=== PATIENT | female | born 1995 | race Caucasian/White ===

== ENCOUNTER 2017-07-21 11:48 | Inpatient (IN) ==
[2017-07-21] MEDS ORDERED: ONDANSETRON 4 MG/2 ML VIAL IV STA (13:53)
[2017-07-21] MEDS ORDERED: SODIUM CHLORIDE 0.9% 1,000 ML IV STA (13:53)
[2017-07-21] MEDS ORDERED: ONDANSETRON 4 MG/2 ML VIAL ONE (14:45)
[2017-07-21 15:53] LABS: Basophils % 0.1 % (0.0-0.8); Eosinophils # 0.1 10*3/uL (0.0-0.87); Eosinophils % 0.8 % (0.00-10.9); Hematocrit 31.6 VOL% (35.7-47.0); Hemoglobin 10.9 GM/DL (12.0-16.0); Immature Granulocytes % 0.4 %; Immature Granulocytes Absolute 0.03 #; Lymphocytes # 1.4 10*3/uL (1.4-4.0); Mean Corpuscular HGB Conc 34.5 GM/DL (32-36); Mean Corpuscular Hemoglobin 30 PG (27-34); Mean Corpuscular Volume 86.3 FL (87-102); Mean Platelet Volume 9.8 FL (9.6-12.0); Monocytes # 0.5 10*3/uL (0.11-0.8); Monocytes % 6.6 % (1.7-12.7); Neutrophils # 5.8 10*3/uL (1.4-7.4); Neutrophils % 74.1 % (38.7-73.9); Platelet Count 191 T/CUMM (130-400); Red Blood Count 3.66 MC/CUMM (3.8-5.5); Red Cell Distribution Width 13.3 % (9.3-17.3); White Blood Count 7.9 T/CUMM (4-12)
[2017-07-21 15:59] LABS: Albumin 3.2 G/DL (3.4-5.0); Bilirubin,Total 0.4 MG/DL (0.2-1.0); Magnesium 1.7 MG/DL (1.8-2.4); Potassium 3.7 MMOL/L (3.5-5.1); Total Protein 6.8 G/DL (6.4-8.3)
[2017-07-21 16:15] LABS: Apearance,Urine Slightly Hazy (Clear); Bacteria,Urine Occasional /HPF (Few); Bilirubin,Urine Negative (Negative); Blood, Urine Negative (Negative); Glucose,Urine (UA) Negative (Negative); Ketones,Urine 80 mg/dL (Negative); Mucus,Urine Few /LPF (Occasional); Nitrite,Urine Negative (Negative); Protein,Urine Negative; RBC,Urine 1 /HPF (0-4); Squamous Epithelial Cell,Urine Occasional /HPF (0-10); Urine Color Yellow (Yellow); Urine Specific Gravity 1.017 (1.001-1.035); Urine Urobilinogen < 2.0 EU/DL (0.2-1.0); WBC,Urine 4 /HPF (0-6)
[2017-07-21] MEDS ORDERED: DEXTROSE 50% 25 GM/50 ML VIAL IV STA (16:55)
[2017-07-21] MEDS ORDERED: DEXTROSE 50% 25 GM/50 ML SYRINGE IV ONE (17:09)
[2017-07-21] MEDS ORDERED: SODIUM CHLORIDE 0.9% 1,000 ML IV SCH (18:04)
[2017-07-21] MEDS ORDERED: ONDANSETRON 4 MG/2 ML VIAL IV PRN (18:04)
[2017-07-21] MEDS ORDERED: ACETAMINOPHEN 500 MG TABLET PO PRN (21:30)
[2017-07-22 05:42] LABS: Basophils % 0.2 % (0.0-0.8); Eosinophils # 0.1 10*3/uL (0.0-0.87); Hematocrit 25.8 VOL% (35.7-47.0); Immature Granulocytes % 0.3 %; Immature Granulocytes Absolute 0.02 #; Lymphocytes # 1.5 10*3/uL (1.4-4.0); Lymphocytes % 25.8 % (21.3-54.2); Mean Corpuscular HGB Conc 34.9 GM/DL (32-36); Mean Corpuscular Hemoglobin 30 PG (27-34); Mean Corpuscular Volume 85.7 FL (87-102); Mean Platelet Volume 9.8 FL (9.6-12.0); Monocytes # 0.4 10*3/uL (0.11-0.8); Monocytes % 7.3 % (1.7-12.7); Neutrophils # 3.8 10*3/uL (1.4-7.4); Neutrophils % 65.4 % (38.7-73.9); Platelet Count 161 T/CUMM (130-400); Red Blood Count 3.01 MC/CUMM (3.8-5.5); Red Cell Distribution Width 13.4 % (9.3-17.3); White Blood Count 5.8 T/CUMM (4-12)
[2017-07-22 06:04] LABS: Albumin 2.4 G/DL (3.4-5.0); Bilirubin,Total 0.7 MG/DL (0.2-1.0); Calcium 7.9 MG/DL (8.5-10.1); Osmolality,Calculated 274.4 MOS/KG (273-304); Potassium 3.5 MMOL/L (3.5-5.1); Total Protein 5.2 G/DL (6.4-8.3)
[2017-07-22] MEDS: METOCLOPRAMIDE 10 MG TABLET PO SCH ×2 (07:50→11:15)
[2017-07-22] MEDS ORDERED: METOCLOPRAMIDE 10 MG TABLET ONE (08:12)
[2017-07-22 11:10] VITALS: BP 91/55
== END 2017-07-22 14:10 | disposition home or self-care (01) | DRG 781 ==
LOC: N.ED 11:48 → N.EDINP 17:01 → N.OB 18:00
PROVIDERS: ADMIT Obstetrics & Gynecology; ATTEND Obstetrics & Gynecology

== ENCOUNTER 2018-01-07 16:26 | Inpatient (IN) ==
[2018-01-07] MEDS: LACTATED RINGERS 1,000 ML IV SCH (16:45)
[2018-01-07] MEDS ORDERED: BUTORPHANOL 2 MG/ML VIAL IV PRN (16:46)
[2018-01-07] MEDS ORDERED: ONDANSETRON 4 MG/2 ML VIAL IV PRN (16:46)
[2018-01-07] MEDS ORDERED: MEPERIDINE 50 MG/1 ML VIAL IV PRN (16:46)
[2018-01-07] MEDS ORDERED: OXYTOCIN/LR 20 UNIT/1,000 ML BAG IV SCH (17:00)
[2018-01-07 17:24] LABS: Basophils % 0.1 % (0.0-0.8); Eosinophils # 0.1 10*3/uL (0.0-0.87); Eosinophils % 0.6 % (0.00-10.9); Hematocrit 28.4 VOL% (35.7-47.0); Hemoglobin 9.5 GM/DL (12.0-16.0); Immature Granulocytes % 0.6 %; Immature Granulocytes Absolute 0.05 #; Lymphocytes # 1.2 10*3/uL (1.4-4.0); Lymphocytes % 15.3 % (21.3-54.2); Mean Corpuscular HGB Conc 33.5 GM/DL (32-36); Mean Corpuscular Hemoglobin 31 PG (27-34); Mean Corpuscular Volume 92.2 FL (87-102); Mean Platelet Volume 10.4 FL (9.6-12.0); Monocytes # 0.3 10*3/uL (0.11-0.8); Neutrophils # 6.4 10*3/uL (1.4-7.4); Neutrophils % 79.4 % (38.7-73.9); Platelet Count 151 T/CUMM (130-400); Red Blood Count 3.08 MC/CUMM (3.8-5.5); Red Cell Distribution Width 14.6 % (9.3-17.3); White Blood Count 8.1 T/CUMM (4-12)
[2018-01-07] MEDS ORDERED: hydrOXYzine HCL 25 MG/1 ML VIAL IM PRN (20:10)
[2018-01-07] MEDS ORDERED: diphenhydrAMINE 50 MG/1 ML VIAL IV PRN ×2 (20:10)
[2018-01-07] MEDS ORDERED: ePHEDrine 50 MG/ML AMP IV PRN (20:10)
[2018-01-07] MEDS ORDERED: CITRIC ACID/SODIUM CITRATE 30 ML UDCUP PO ONE (20:11)
[2018-01-07] MEDS ORDERED: FAMOTIDINE 20 MG/2 ML VIAL IV ONE (20:11)
[2018-01-07] MEDS ORDERED: fentaNYL 2 MCG/ROPIV 0.2% EPID 150 ML EPIDURAL SCH (20:30)
[2018-01-08] MEDS ORDERED: fentaNYL 100 MCG/2 ML VIAL ONE (05:51)
[2018-01-08] MEDS ORDERED: AMPICILLIN INJ 2,000 MG in SODIUM CHLORIDE 0.9% 100 ML IV ONE (07:15)
[2018-01-08] MEDS ORDERED: ACETAMINOPHEN 325 MG TABLET PO ONE ×2 (07:52→14:06)
[2018-01-08] MEDS: LACTATED RINGERS 1,000 ML IV SCH ×2 (09:04→17:19)
[2018-01-08] MEDS ORDERED: ePHEDrine 50 MG/ML AMP IV ONE (09:14)
[2018-01-08] MEDS: AMPICILLIN INJ 1,000 MG in SODIUM CHLORIDE 0.9% 100 ML IV SCH ×2 (11:38→15:27)
[2018-01-08] MEDS ORDERED: LIDOCAINE 1% 50 ML VIAL ONE (18:29)
[2018-01-08] MEDS ORDERED: miSOPROStol 200 MCG TABLET ONE (18:29)
[2018-01-08] MEDS ORDERED: METHYLERGONOVINE 0.2 MG/1 ML AMP ONE (18:58)
[2018-01-08] MEDS ORDERED: METHYLERGONOVINE 0.2 MG/1 ML AMP IM ONE (19:00)
[2018-01-08] MEDS ORDERED: HYDROCORTISONE 2.5% RECTAL CREAM 30 GM TUBE TOP PRN (19:34)
[2018-01-08] MEDS ORDERED: ACETAMINOPHEN 325 MG TABLET PO PRN (19:34)
[2018-01-08] MEDS ORDERED: MEASLES/MUMPS/RUBELLA VACCINE 0.5 ML VIAL SUBCUT ONE (19:34)
[2018-01-08] MEDS ORDERED: WITCH HAZEL PADS 100/JAR TOP PRN (19:34)
[2018-01-08] MEDS ORDERED: LANOLIN 50% CREAM 0.3 OZ TUBE TOP PRN (19:34)
[2018-01-08] MEDS ORDERED: BENZOCAINE 20%/MENTHOL 0.5% SPRAY 56 GM CAN TOP PRN (19:34)
[2018-01-08] MEDS ORDERED: BISACODYL 10 MG SUPP RECTAL PRN (19:34)
[2018-01-08] MEDS ORDERED: DIPH/TET/ACEL PERT BOOSTER VACCINE 0.5 ML VIAL IM ONE (19:34)
[2018-01-08] MEDS ORDERED: ACETAMINOPHEN/CODEINE 300-30 MG TABLET PO ONE (20:24)
[2018-01-08] MEDS: IBUPROFEN 800 MG TABLET PO PRN (20:37)
[2018-01-08] MEDS: traMADol 50 MG TABLET PO PRN (20:37)
[2018-01-09] MEDS: IBUPROFEN 800 MG TABLET PO PRN ×3 (04:28→18:02)
[2018-01-09] MEDS: traMADol 50 MG TABLET PO PRN ×3 (04:29→18:03)
[2018-01-09] MEDS: FERROUS SULFATE 325 MG TABLET PO SCH ×4 (04:53→17:35)
[2018-01-09] MEDS: DOCUSATE SODIUM 100 MG CAPSULE PO SCH ×3 (04:53→21:21)
[2018-01-09 04:54] LABS: Basophils % 0.2 % (0.0-0.8); Eosinophils # 0.1 10*3/uL (0.0-0.87); Eosinophils % 0.3 % (0.00-10.9); Hematocrit 24.9 VOL% (35.7-47.0); Hemoglobin 8.3 GM/DL (12.0-16.0); Immature Granulocytes % 1.2 %; Immature Granulocytes Absolute 0.26 #; Lymphocytes # 1.6 10*3/uL (1.4-4.0); Lymphocytes % 7.4 % (21.3-54.2); Mean Corpuscular HGB Conc 33.3 GM/DL (32-36); Mean Corpuscular Hemoglobin 31 PG (27-34); Mean Corpuscular Volume 92.6 FL (87-102); Mean Platelet Volume 10.3 FL (9.6-12.0); Monocytes % 4.7 % (1.7-12.7); Neutrophils # 18.2 10*3/uL (1.4-7.4); Neutrophils % 86.2 % (38.7-73.9); Platelet Count 141 T/CUMM (130-400); Red Blood Count 2.69 MC/CUMM (3.8-5.5); Red Cell Distribution Width 14.6 % (9.3-17.3)
[2018-01-09 05:02] LABS: White Blood Count 21.2 T/CUMM (4-12)
[2018-01-09 05:30] LABS: Band Neutrophils 1 % (0-10); Lymphocytes 4 % (20-55); Platelet Estimate Adequate; Polychromasia Slight; Segmented Neutrophils 92 % (50-85); Total Cells Counted 100
[2018-01-09 05:31] LABS: Ovalocytes Slight
[2018-01-09] MEDS ORDERED: MEPERIDINE 50 MG TABLET PO PRN (08:26)
[2018-01-10] MEDS: IBUPROFEN 800 MG TABLET PO PRN ×2 (00:05→05:52)
[2018-01-10] MEDS: traMADol 50 MG TABLET PO PRN ×2 (00:05→05:52)
[2018-01-10] MEDS: FERROUS SULFATE 325 MG TABLET PO SCH ×2 (00:06→13:24)
[2018-01-10] MEDS: DOCUSATE SODIUM 100 MG CAPSULE PO SCH (08:56)
[2018-01-10 10:41] VITALS: BP 108/67
== END 2018-01-10 13:20 | disposition home or self-care (01) | DRG 774 ==
LOC: N.LDOUT 16:26 → N.LD 16:29 → N.OB 01-08 21:55
PROVIDERS: ADMIT Obstetrics & Gynecology; ATTEND Obstetrics & Gynecology

== ENCOUNTER 2020-07-03 05:40 | Inpatient (IN) ==
[2020-07-03 06:24] LABS: Basophils % 0.3 % (0.0-0.8); Eosinophils # 0.1 10*3/uL (0.0-0.87); Eosinophils % 0.8 % (0.00-10.9); Hematocrit 29.3 VOL% (35.7-47.0); Hemoglobin 9.7 GM/DL (12.0-16.0); Immature Granulocytes % 1.5 %; Immature Granulocytes Absolute 0.14 #; Lymphocytes % 20.8 % (21.3-54.2); Mean Corpuscular HGB Conc 33.1 GM/DL (32-36); Mean Corpuscular Volume 93.3 FL (87-102); Mean Platelet Volume 9.4 FL (9.6-12.0); Monocytes % 6.9 % (1.7-12.7); Neutrophils % 69.7 % (38.7-73.9); Platelet Count 163 T/CUMM (130-400); Red Blood Count 3.14 MC/CUMM (3.8-5.5); Red Cell Distribution Width 13.7 % (9.3-17.3); White Blood Count 9.6 T/CUMM (4-12)
[2020-07-03] MEDS ORDERED: LACTATED RINGERS 1,000 ML IV SCH (06:30)
[2020-07-03 06:53] LABS: Albumin 2.6 G/DL (3.4-5.0); Calcium 8.4 MG/DL (8.5-10.1); Osmolality,Calculated 272.7 MOS/KG (273-304); Total Protein 6.3 G/DL (6.4-8.3)
[2020-07-03] MEDS ORDERED: OXYTOCIN/LR 20 UNIT/1,000 ML BAG IV SCH (07:30)
[2020-07-03] MEDS: ONDANSETRON 4 MG/2 ML VIAL IV PRN ×2 (09:49→16:50)
[2020-07-03] MEDS: MEPERIDINE 50 MG/1 ML VIAL IV PRN ×2 (09:51→12:44)
[2020-07-03] MEDS ORDERED: hydrOXYzine HCL 25 MG/1 ML VIAL IM PRN (10:06)
[2020-07-03] MEDS ORDERED: NALOXONE 0.4 MG/ML VIAL IV PRN (10:06)
[2020-07-03] MEDS ORDERED: ONDANSETRON 4 MG/2 ML VIAL IV ONE (10:06)
[2020-07-03] MEDS ORDERED: diphenhydrAMINE 50 MG/1 ML VIAL IV PRN ×2 (10:06)
[2020-07-03] MEDS ORDERED: PROMETHAZINE 25 MG/1 ML VIAL IM ONE (10:06)
[2020-07-03] MEDS ORDERED: ePHEDrine 50 MG/ML VIAL IV PRN (10:06)
[2020-07-03] MEDS ORDERED: FAMOTIDINE 20 MG/2 ML VIAL IV ONE (10:06)
[2020-07-03] MEDS ORDERED: CITRIC ACID/SODIUM CITRATE 30 ML UDCUP PO ONE (10:06)
[2020-07-03] MEDS ORDERED: LACTATED RINGERS 1,000 ML IV ONE (10:06)
[2020-07-03] MEDS ORDERED: fentaNYL 2 MCG/ROPIV 0.2% EPID 100 ML EPIDURAL SCH (10:30)
[2020-07-03] MEDS ORDERED: LIDOCAINE 1% 50 ML VIAL ONE (14:57)
[2020-07-03] MEDS ORDERED: miSOPROStoL 200 MCG TABLET ONE (14:57)
[2020-07-03] MEDS ORDERED: TRANEXAMIC ACID 1,000 MG/10 ML VIAL ONE (14:57)
[2020-07-03] MEDS ORDERED: SODIUM CHLORIDE 0.9% 0 ML IV ONE (14:57)
[2020-07-03 15:35] LABS: Bilirubin,Urine Negative (Negative); Blood, Urine Small mg/dL (Negative); Glucose,Urine (UA) Negative (Negative); Ketones,Urine 20 mg/dL (Negative); Mucus,Urine Occasional /LPF (Occasional); Nitrite,Urine Negative (Negative); Protein,Urine Negative; RBC,Urine <1 /HPF (0-4); Squamous Epithelial Cell,Urine Occasional /HPF (0-10); Urine Appearance CLEAR (Clear); Urine Color Yellow (Yellow); Urine Specific Gravity 1.014 (1.001-1.035); Urine Urobilinogen < 2.0 EU/DL (0.2-1.0); WBC,Urine <1 /HPF (0-6)
[2020-07-03] MEDS ORDERED: CARBOPROST TROMETHAMINE 250 MCG/ML AMP IM ONE (15:44)
[2020-07-03] MEDS ORDERED: METHYLERGONOVINE 0.2 MG/1 ML AMP ONE (15:44)
[2020-07-03] MEDS ORDERED: METHYLERGONOVINE 0.2 MG/1 ML AMP IM ONE (16:06)
[2020-07-03] MEDS ORDERED: miSOPROStoL 200 MCG TABLET PO ONE (16:10)
[2020-07-03 16:20] LABS: Cord Venous Blood HCO3 22.7 MMOL/L; Cord Venous Blood PCO2 42.6 MMHG; Cord Venous Blood PO2 38.7
[2020-07-03] MEDS ORDERED: IBUPROFEN 800 MG TABLET PO ONE (18:02)
[2020-07-03] MEDS ORDERED: OXYTOCIN/LR 20 UNIT/1,000 ML BAG IV ONE (18:17)
[2020-07-03] MEDS ORDERED: HYDROCORTISONE 2.5% RECTAL CREAM 30 GM TUBE TOP PRN (18:53)
[2020-07-03] MEDS ORDERED: WITCH HAZEL PADS 100/JAR TOP PRN (18:53)
[2020-07-03] MEDS ORDERED: BENZOCAINE 20%/MENTHOL 0.5% SPRAY 56 GM CAN TOP PRN (18:53)
[2020-07-03] MEDS ORDERED: RHO(D) IMMUNE GLOBULIN 300 MCG SYRINGE IM ONE (18:53)
[2020-07-03] MEDS ORDERED: DIPH/TET/ACEL PERT BOOSTER VACCINE 0.5 ML VIAL IM ONE (18:53)
[2020-07-03] MEDS ORDERED: ACETAMINOPHEN 325 MG TABLET PO PRN (18:53)
[2020-07-03] MEDS ORDERED: MEASLES/MUMPS/RUBELLA VACCINE 0.5 ML VIAL SUBCUT ONE (18:53)
[2020-07-03] MEDS ORDERED: LANOLIN 50% CREAM 0.3 OZ TUBE TOP PRN (18:53)
[2020-07-03] MEDS ORDERED: BISACODYL 10 MG SUPP RECTAL PRN (18:53)
[2020-07-03] MEDS: ACETAMINOPHEN 500 MG TABLET PO PRN (19:48)
[2020-07-03] MEDS: FERROUS SULFATE 325 MG TABLET PO SCH (20:38)
[2020-07-03] MEDS: HYDROXYCHLOROQUINE 200 MG TABLET PO SCH (20:38)
[2020-07-03] MEDS: DOCUSATE SODIUM 100 MG CAPSULE PO SCH (20:38)
[2020-07-04] MEDS: IBUPROFEN 800 MG TABLET PO PRN ×4 (00:27→19:51)
[2020-07-04] MEDS: ACETAMINOPHEN 500 MG TABLET PO PRN ×3 (01:48→19:51)
[2020-07-04 06:45] LABS: Basophils % 0.2 % (0.0-0.8); Eosinophils # 0.1 10*3/uL (0.0-0.87); Eosinophils % 0.6 % (0.00-10.9); Hematocrit 25.1 VOL% (35.7-47.0); Hemoglobin 8.4 GM/DL (12.0-16.0); Immature Granulocytes % 0.7 %; Immature Granulocytes Absolute 0.11 #; Lymphocytes % 13.1 % (21.3-54.2); Mean Corpuscular HGB Conc 33.5 GM/DL (32-36); Mean Corpuscular Volume 93.7 FL (87-102); Mean Platelet Volume 9.6 FL (9.6-12.0); Monocytes % 6.6 % (1.7-12.7); Neutrophils % 78.8 % (38.7-73.9); Platelet Count 146 T/CUMM (130-400); Red Blood Count 2.68 MC/CUMM (3.8-5.5); Red Cell Distribution Width 13.7 % (9.3-17.3); White Blood Count 15.1 T/CUMM (4-12)
[2020-07-04] MEDS: FERROUS SULFATE 325 MG TABLET PO SCH ×2 (08:56→20:19)
[2020-07-04] MEDS: HYDROXYCHLOROQUINE 200 MG TABLET PO SCH (08:56)
[2020-07-04] MEDS: DOCUSATE SODIUM 100 MG CAPSULE PO SCH ×2 (08:57→20:19)
[2020-07-04] MEDS: MULTIVITAMIN (PRENATAL) TABLET PO SCH (08:57)
[2020-07-04] MEDS: traMADol 50 MG TABLET PO PRN ×3 (09:58→22:06)
[2020-07-04] MEDS ORDERED: HYDROXYCHLOROQUINE 200 MG TABLET PO SCH (21:00)
[2020-07-05] MEDS: IBUPROFEN 800 MG TABLET PO PRN (02:03)
[2020-07-05 07:27] VITALS: BP 110/71
[2020-07-05] MEDS: MULTIVITAMIN (PRENATAL) TABLET PO SCH (08:28)
[2020-07-05] MEDS: DOCUSATE SODIUM 100 MG CAPSULE PO SCH (08:28)
[2020-07-05] MEDS: FERROUS SULFATE 325 MG TABLET PO SCH (08:28)
[2020-07-05] MEDS: traMADol 50 MG TABLET PO PRN (10:19)
== END 2020-07-05 13:05 | disposition home or self-care (01) | DRG 807 ==
LOC: N.LDOUT 05:40 → N.LD 05:42 → N.OB 18:25
PROVIDERS: ADMIT Obstetrics & Gynecology; ATTEND Obstetrics & Gynecology